=== PATIENT | female | born 1955 | race Caucasian/White ===

== ENCOUNTER 2021-04-15 05:28 | Day surgery (SDC) | payer MEDICARE, OTHER ==
[~2021-04-15] VITALS: Ht 160 cm; Wt 84.0 kg
[~2021-04-15 05:28] MED LIST: ACETAMINOPHEN500 M1 PO; ATORVASTATIN CA40 MG PO; DILTIAZEM 24HR360 MG PO; MELOXICAM7.5 MG PO; OS-CAL500 MG PO; RALOXIFENE HCL60 MG PO; SERTRALINE HCL100 MG PO; SERTRALINE HCL50 MG PO; VITAMIN D310 MC3 PO
[2021-04-15] MEDS ORDERED: PERCOCET 5-3251 EACH PO (08:12)
--- NOTE | 2021-04-15 11:36 | NUR ---
[employer] [facility], Right total knee replacement, [facility] Thursday04-16-21 in am, Pt has 3:1 at home, Ordered thru [facility] to bring rolling walker before DC
--- NOTE | 2021-04-15 14:19 | NUR ---
Spoke with about choices for rehab he chose [facility] to home he cant say a bad thing about them. APPt 04-16-21 they will call pt [facility] 5-7 for time, PT chose [facility] for rolling walker advised that it had been ordered to expect before DC, Choice form signed by spouse Uvaldo Jc.
[2021-04-16 05:42] LABS: BASOPHIL 0.3 % (0-2); EOSINOPHIL 0 % (0-7); HCT 30.4 % (37.0-47.0); MCH 30.4 pg (25.0-31.0); MCHC 32.9 g/dL (32.0-36.0); MCV 92.4 fL (78.0-100.0); MONOCYTE 13.8 % (0-12); MPV 11.3 fL (6.0-9.5); NEUTROPHIL 76.5 % (41-80); NRBC 0; PLT 206 K/uL (150-400); RBC 3.29 M/uL (4.20-5.40); RDW 13.6 % (11.5-14.0); WBC 11.9 K/uL (4.0-10.5)
[2021-04-16 06:07] LABS: BUN/CREAT RATIO (CALC) 18.3 RATIO; CREATININE 0.93 mg/dL (0.51-0.95); POTASSIUM 4.4 mmol/L (3.5-5.1)
[2021-04-16] MEDS ORDERED: XARELTO10 MG PO (08:44)
[2021-04-16] MEDS ORDERED: FEOSOL325 MG PO (08:44)
--- NOTE | 2021-04-16 09:28 | NUR ---
Please fax DC summary to [facility] to [facility] DC,
[2021-04-16] MEDS ORDERED: ULTRA-LIGHT RO1 EACH XX (10:01)
== END 2021-04-16 11:10 | disposition home or self-care (01) ==
LOC: FMS 05:28 → FAS 05:28 → FMS 08:44 → FAS 04-16 11:10
PROVIDERS: Legal Medicine
DX: M17.12 Unilateral primary osteoarthritis, left knee (principal); M21.162 Varus deformity, not elsewhere classified, left knee; I10 Essential (primary) hypertension; E78.5 Hyperlipidemia, unspecified; F32.9 Major depressive disorder, single episode, unspecified; F41.9 Anxiety disorder, unspecified; M81.0 Age-related osteoporosis without current pathological fracture; G47.30 Sleep apnea, unspecified; Z79.899 Other long term (current) drug therapy
CPT/HCPCS: 36415; 73560; 80048; 85025; 86850; 86900; 86901; 94010; 94762; 97110; 97162; 97166; 97530-GP; 97535; C1713; C1776; J0171; J0697; J1100; J1170; J1885; J2250; J2270; J2370; J2405; J2704; J2795; J3010; J7120

== ENCOUNTER 2022-05-12 08:16 | Day surgery (SDC) | payer MEDICARE, OTHER ==
[~2022-05-12] VITALS: Ht 160 cm; Wt 90.0 kg
[~2022-05-12 08:16] MED LIST changes: +FEOSOL325 MG PO; +PERCOCET 5-3251 EACH PO; +ULTRA-LIGHT RO1 EACH XX; +XARELTO10 MG PO
[2022-05-13 07:07] LABS: BASOPHIL 0.1 % (0-2); EOSINOPHIL 0 % (0-7); HCT 30.3 % (37.0-47.0); HGB 9.6 g/dl (12.5-16.0); LYMPHOCYTE 6.1 % (15-48); MCH 29.7 pg (25.0-31.0); MCHC 31.7 g/dL (32.0-36.0); MCV 93.8 fL (78.0-100.0); MONOCYTE 10.4 % (0-12); MPV 12.1 fL (6.0-9.5); NEUTROPHIL 82.9 % (41-80); NRBC 0; PLT 210 K/uL (150-400); RBC 3.23 M/uL (4.20-5.40); RDW 13.3 % (11.5-14.0); WBC 15.1 K/uL (4.0-10.5)
[2022-05-13 07:14] LABS: BUN/CREAT RATIO (CALC) 19.8 RATIO; CREATININE 0.96 mg/dL (0.51-0.95); POTASSIUM 4.5 mmol/L (3.5-5.1)
[2022-05-13] MEDS ORDERED: FEOSOL325 MG PO (08:10)
[2022-05-13] MEDS ORDERED: XARELTO10 MG PO (08:11)
[2022-05-13] MEDS ORDERED: PANTOPRAZOLE SO40 MG PO (08:11)
== END 2022-05-13 11:45 | disposition home or self-care (01) ==
LOC: FAS 08:16 → FMS 12:38 → FAS 05-13 11:45
PROVIDERS: Legal Medicine
DX: M17.11 Unilateral primary osteoarthritis, right knee (principal); M21.161 Varus deformity, not elsewhere classified, right knee; I10 Essential (primary) hypertension; E78.5 Hyperlipidemia, unspecified; F41.9 Anxiety disorder, unspecified; E78.00 Pure hypercholesterolemia, unspecified; Z79.1 Long term (current) use of non-steroidal anti-inflammatories (NSAID); Z79.899 Other long term (current) drug therapy
CPT/HCPCS: 36415; 73560; 80048; 85025; 86850; 86900; 86901; 94010; 94760; 97110; 97116; 97161; 97166; C1713; C1776; J0171; J0697; J1100; J1170; J1885; J2250; J2270; J2405; J2704; J2795; J3010; J7120